=== PATIENT | female | born 1965 | race Caucasian/White ===

== ENCOUNTER 2019-02-05 15:00 | Outpatient (RCR) | payer SELFPAY ==
--- NOTE | 2019-03-10 07:15 | HP.PT.NRP ---
HP - Discharge Summary (1) - Patient Information YEIMI COULTER was seen in my office for initial evaluation on . The following Plan of Care was established for this patient: This patient was last seen in our office 02/05/19. Pertinent comments regarding their Physical therapy will appear below: Pt. was treated for self pay DN for her low back pain. Pt. reports having good succession with reduction in tigthness. Pt. will be DC from PT at this point in time. At this point I will be discontinuing this patient from physical therapy. I would be happy to see this patient again in the future if found appropriate by the physician. Thank you! NADINE CeeT
== END 2019-02-05 19:00 | disposition home or self-care (01) ==
LOC: PT 15:00
PROVIDERS: Family Provider Family Medicine; PCP Family Medicine
DX: R69 Illness, unspecified (principal)

== ENCOUNTER 2019-08-11 10:00 | Outpatient (RCR) | payer SELFPAY | END 2019-08-11 19:00 | disposition home or self-care (01) | LOC: PT 10:00 | PROVIDERS: Family Provider Family Medicine; PCP Family Medicine | DX: R69 Illness, unspecified (principal) ==